=== PATIENT | female | born 2000 | race African-American/Black ===

== ENCOUNTER 2018-02-27 21:05 | Inpatient (IN) ==
[2018-02-27] MEDS ORDERED: Dexamethasone Inj 20 MG/5 ML Vial IV.PUSH ONE (22:13)
[2018-02-27] MEDS ORDERED: Sod Chloride 0.9% Inj 1,000 ML IV.SIG SCH (22:15)
--- NOTE | 2018-02-27 22:45 | ED ---
HPI General Chief complaint: Ear Stated complaint: Flu symptoms Time Seen by Provider: 02/27/18 22:06 Source: patient Mode of arrival: ambulatory Limitations: no limitations History of Present Illness HPI narrative: Patient is a 17-year-old female presenting to the emerge department for evaluation of sore throat and left ear pain. Patient states started 2 days ago. She denies any drooling but states it is painful to swallow. Patient has not taken any medications to alleviate her symptoms. She reports the pain is a 9 out of 10, aching, sore. Symptom onset was gradual, symptoms are moderate. Patient denies any vomiting, abdominal pain, chest pain , headache. She endorses chills and subjective fevers. Patient denies any significant past medical history. Onset (ago): day(s) Related Data Home Medications Medication Instructions Recorded Confirmed No Known Home Medications 02/28/18 02/28/18 Allergies Allergy/AdvReac Type Severity Reaction Status Date / Time No Known Allergies Allergy Verified 02/06/18 05:57 Review of Systems ROS: all other systems reviewed are negative [facility] Medical History Medical History Patient denies medical problems (Acute) Surgical History Surgical History No history of previous surgery (Acute) Social History Social History Substance History: No History of Abuse Second Hand Smoke Exposure: No Smoking Status: Never smoker How Often Do You Have a Drink Containing Alcohol: Never Recent Travel in [facility] within the Last 8 Weeks: No Recent Out of Country Travel within the Last 8 Weeks: No Immunization History Tetanus Immunization: Unsure Exam Narrative Exam Narrative: GENERAL: Overweight, well-developed, alert -[place] female. Presenting in no acute distress. SKIN: Focused skin assessment warm/dry. HEAD: Atraumatic. Normocephalic. EYES: Pupils equal and round. No scleral icterus. No injection or drainage. ENT: No nasal bleeding or discharge. Mucous membranes pink and moist. Bilateral tonsillar hypertrophy, left tonsil is touching uvula. Mild erythema noted, no exudates noted. NECK: Trachea midline. No JVD. Tenderness to the left lateral neck with mild edema. CARDIOVASCULAR: Tachycardic. No murmur appreciated. RESPIRATORY: No accessory muscle use. Clear to auscultation. Breath sounds equal bilaterally. No Stridor noted. GASTROINTESTINAL: Abdomen soft, non-tender, nondistended. Hepatic and splenic margins not palpable. MUSCULOSKELETAL: No obvious deformities. No clubbing. No cyanosis. No edema. NEUROLOGICAL: Awake and alert. No obvious cranial nerve deficits. Motor grossly within normal limits. Normal speech. PSYCHIATRIC: Appropriate mood and affect; insight and judgment normal. Course Initial Documented Vital Signs Temperature 100.3 F H 02/27/18 21:19 Pulse Rate 120 H 02/27/18 21:19 Respiratory Rate 18 02/27/18 21:19 Blood Pressure 156/76 H 02/27/18 21:19 Pulse Oximetry 100 02/27/18 21:19 Last Documented Vital Signs Temperature 98.2 F 02/28/18 08:00 Pulse Rate 71 02/28/18 08:00 Respiratory Rate 16 02/28/18 08:00 Blood Pressure 129/77 02/28/18 08:00 Pulse Oximetry 100 02/28/18 08:00 Medical Decision Making ИРИНА Attestation ИРИНА supervised visit: Yes Attestation: I, Dr. Ray, have reviewed the advance practice practitioner's documentation and am in agreement, met with the patient face to face, made the diagnosis, and the medical decision making was done by me. *My assessment and Findings: Pt with deviation of trachea to R on CT imaging associated with selling of submandibular gland on CT. WBC 16k. Febrile on arrival. No dyspnea. + Hoarse voice. No abscess/collection. Clindamycin and Decadron IV. d/w Dr Wynn. [facility] Narrative Medical decision making narrative: Patient is a 17-year-old female presenting for evaluation of a sore throat and ear pain. On arrival patient is tachycardic and febrile. Exam is concerning for peritonsillar abscess. CT scan , labs ordered and pending. Patient will receive ibuprofen, dexamethasone IV fluids now. Will reassess. CBC with white blood cell count of 16.4. BMP is unremarkable. UA with reflex culture pending. Pt has no urinary symptoms. CT of the neck shows an ill defined prominence left parapharyngeal region with mild midline shift of the airway to the right. Concerning for infection or inflammatory process. Pt meets sepsis criteria based on HR, Temp and WBC's. She will be given Clindamycin due to penicillin allergy. Pt will be admitted to monitor for airway obstruction. Pt reassessed and reports the pain has improved slightly. Her temp is now 99.0. [facility] paged for admit. Medical Screen Exam Complete: Yes Emergency Medical Condition: Yes Differential Diagnosis Differential Diagnosis: Tonsillitis vs abscess vs strep vs metabolic abnormality vs other Medical Records Medical records reviewed: Yes I reviewed the patient's medical records. Lab Data Lab results reviewed: Yes I reviewed the patient's lab results. Result diagrams: 02/27/18 22:20 02/27/18 22:20 POC Results POC Urine Results Negative Lab Results 02/27/18 02/27/18 02/27/18 Range/Units 22:20 22:20 23:12 WBC 16.4 H (4.0-11.0) th/mm3 RBC 4.39 (4.00-5.30) mil/mm3 Hgb 7.4 L (11.6-15.3) gm/dL Hct 24.4 L (35.0-46.0) % MCV 55.5 L (80.0-100.0) fL MCH 16.8 L (27.0-34.0) pg MCHC 30.3 L (32.0-36.0) % RDW 20.4 H (11.6-17.2) % Plt Count 425 (150-450) th/mm3 MPV 8.4 (7.0-11.0) fL Neut % (Auto) 74.1 H (16.0-70.0) % Lymph % (Auto) 17.1 (9.0-44.0) % [place] % (Auto) 6.4 (0.0-8.0) % Eos % (Auto) 1.9 (0.0-4.0) % Baso % (Auto) 0.5 (0.0-2.0) % Neut # (Auto) 12.1 H (1.8-7.7) th/mm3 Lymph # (Auto) 2.8 (1.0-4.8) th/mm3 [place] # (Auto) 1.0 H (0.0-0.9) th/mm3 Eos # (Auto) 0.3 (0.0-0.4) th/mm3 Baso # (Auto) 0.1 (0.0-0.2) th/mm3 WBC Differential . Differential Comment Auto diff final Sodium 139 (136-145) meq/L Potassium 3.9 (3.5-5.1) meq/L Chloride 103 (98-107) meq/L Carbon Dioxide 28.2 (21.0-32.0) meq/L Anion Gap 8 (5-15) meq/L BUN 9 (7-18) mg/dL Creatinine 0.98 (0.50-1.00) mg/dL Estimated GFR 88 L (>89) mL/min Random Glucose 95 (74-106) mg/dL Calcium 9.2 (8.5-10.1) mg/dL Urine Color Diana (Yellw/Straw) Urine Clarity Cloudy H (Clear) Urine pH 5.0 (5.0-8.5) Ur Specific [place] 1.026 (1.002-1.035) Urine Protein 30 H (Neg-Trace) mg/dL Urine Glucose (UA) Negative (Negative) mg/dL Urine Ketones Trace H (Negative) mg/dL Urine Occult Blood Negative (Negative) Urine Nitrate Negative (Negative) Urine Bilirubin Negative (Negative) Urine Urobilinogen 4 or greater (Less than 2) mg/dL Ur Leukocyte Esterase Negative (Negative) Urine RBC 1 (0-3) /hpf Urine WBC 11 H (0-5) /hpf Ur Squamous Epith Cells 2 (0-5) /hpf Amorphous Sediment Rare H (None) /hpf Urine Bacteria Few H (None) /hpf Urine Mucus Many H (Occasional) /lpf Micro UA Comment Culture indicated Ur Microscopic Review Not Reportable Urine Culture Comments Culture indicated Imaging Data Radiologist's impression: Soft Tissue Neck CT 02/27/18 22:13 CONCLUSION: 1. Abnormal ill-defined prominence in the left parapharyngeal region with mild midline shift of the airway to the right. There are no focal gas bubbles or identifiable mass. This finding is of concern for infection and or inflammatory change. There is no well-defined abscess. 2. Mildly prominent left cervical chain nodes which likely are reactive. Discharge Plan Discharge Disposition Patient Disposition: ED Admit(ED Internal Use Only) Discharge Condition Condition: Stable Discharge Order Discharge Orders: ED Use Only Admit Order (Routine); Ordered 02/28/18 Ordered By: Dawood Ray Discharge Details Diagnosis: Sepsis, Hypertrophy of tonsil, Abnormal CT scan, At risk for airway obstruction Physicians Team ED Provider: Dawood Ray ED Midlevel Provider: Gala Hopper Primary Care Provider: Primary Care Melanie Malik Attending Provider: Hector Allen Status ED Status: Left Department Discharge Information Discharge Date/Time: 02/28/18 02:31
[2018-02-27 22:52] LABS: Baso # (Auto) 0.1 th/mm3 (0.0-0.2); Baso % (Auto) 0.5 % (0.0-2.0); Eos # (Auto) 0.3 th/mm3 (0.0-0.4); Eos % (Auto) 1.9 % (0.0-4.0); Hematocrit 24.4 % (35.0-46.0); Hemoglobin 7.4 gm/dL (11.6-15.3); Lymph # (Auto) 2.8 th/mm3 (1.0-4.8); Lymph % (Auto) 17.1 % (9.0-44.0); Mean Corpuscular HGB Conc 30.3 % (32.0-36.0); Mean Corpuscular Hemoglobin 16.8 pg (27.0-34.0); Mean Corpuscular Volume 55.5 fL (80.0-100.0); Mean Platelet Volume 8.4 fL (7.0-11.0); Mono % (Auto) 6.4 % (0.0-8.0); Neut # (Auto) 12.1 th/mm3 (1.8-7.7); Neut % (Auto) 74.1 % (16.0-70.0); Platelet Count 425 th/mm3 (150-450); Red Blood Count 4.39 mil/mm3 (4.00-5.30); Red Cell Distribution Width 20.4 % (11.6-17.2); White Blood Count 16.4 th/mm3 (4.0-11.0)
[2018-02-27 23:29] LABS: Calcium 9.2 mg/dL (8.5-10.1); Carbon Dioxide 28.2 meq/L (21.0-32.0); Potassium 3.9 meq/L (3.5-5.1)
[2018-02-27 23:30] LABS: Amorphous Sediment,Urine Rare /hpf; Bacteria,Urine Few /hpf; Bilirubin,Urine Negative (Negative); Clarity,Urine Cloudy (Clear); Color,Urine Amber (Yellw/Straw); Glucose,Urine (UA) Negative (Negative); Leukocyte Esterase,Urine Negative (Negative); Mucus,Urine Many /lpf (Occasional); Nitrite,Urine Negative (Negative); Specific Gravity,Urine 1.026 (1.002-1.035); Squamous Epithelial Cell,Urine 2 /hpf (0-5); Urobilinogen,Urine 4 or Greater mg/dL (Less than 2)
--- NOTE | 2018-02-28 00:10 | CT ---
EXAM DATE: 02/28/2018 12:00 AM EST AGE/SEX: 17 years / Female INDICATIONS: Sore throat, Neck pain. CLINICAL DATA: This is the patient's initial encounter. Patient reports that signs and symptoms have been present for 2 days and indicates a pain score of 8/10. MEDICAL/SURGICAL HISTORY: None. None. RADIATION DOSE: 20.25 CTDI (mGy) COMPARISON: No prior exams available for comparison. TECHNIQUE: Helical acquisition was performed using a multirow detector CT scanner during the adminis tration of 71 ml Omnipaque 350 (iohexol) nonionic water-soluble contrast as a single exam dose. Usi ng automated exposure control and adjustment of the mA and/or kV according to patient size, radiation dose was kept as low as reasonably achievable to obtain optimal diagnostic quality images. DICOM fo rmat image data is available electronically for review and comparison. FINDINGS: Nasopharynx: The nasopharyngeal airway has a normal configuration. No mucosal thickening or mass is seen. Oropharynx: The intrinsic muscles of the tongue are symmetric. The tonsillar pillars are intact. T he prevertebral soft tissues are not thickened. Larynx: The supraglottic, glottic, and infraglottic structures are intact. Parapharyngeal: There is abnormal ill-defined prominence in the left parapharyngeal region with mild midline shift of the airway to the right. There is subtle decreased density in this region with no g as bubbles or definable mass. Salivary Glands: The parotid and submandibular glands are intact. Lymph Nodes: There are no necrotic-appearing lymph nodes. There is a mildly prominent left lower cer vical chain node measuring up to 1.8 cm in diameter. There are adjacent smaller nodes. Thyroid: Homogeneous enhancement without evidence of nodule. Bones: Unremarkable. CONCLUSION: 1. Abnormal ill-defined prominence in the left parapharyngeal region with mild midline shift of the airway to the right. There are no focal gas bubbles or identifiable mass. This finding is of concern for infection and or inflammatory change. There is no well-defined abscess. 2. Mildly prominent left cervical chain nodes which likely are reactive. Electronically signed by: Serge Venegas MD Board Certified Radiologist 02/28/2018 12:09 AM EST
[2018-02-28] MEDS ORDERED: Clindamycin 900 mg/NS Premix 900 MG/50 ML PIGGYBACK IV.SIG ONE (00:22)
[2018-02-28] MEDS ORDERED: Acetaminophen 325 MG Tablet PO PRN (01:31)
[2018-02-28] MEDS: Enoxaparin Inj 40 MG/0.4 ML Syringe SQ SCH (01:52)
[2018-02-28] MEDS: Sod Chloride 0.9% Inj 1,000 ML IV.CONT SCH ×2 (03:47→14:02)
[2018-02-28] MEDS ORDERED: Clindamycin 900 mg/NS Premix 900 MG/50 ML PIGGYBACK IV.SIG SCH (07:00)
[2018-02-28] MEDS ORDERED: Dexamethasone Inj 20 MG/5 ML Vial IV.PUSH ONE (07:29)
--- NOTE | 2018-02-28 11:57 | P.HPIM ---
History of Present Illness Primary Care Physician: No Primary Care Physician History of Present Illness: 17-year-old female with a history of bilateral tonsillar hypertrophy and sleep apnea presents to the ER following 2 days of worsening sore throat which reached the point where swallowing was so difficult she began to drool and began to have some difficulty with her breathing. She has only been able to hold down liquids. Unable to swallow solid food. ER examination on admission revealed marked swelling of the left oropharynx, she was given a dose of IV steroids and started on clindamycin. Her admission was late in the night but it seems evident that she has had some improvement, both symptomatically and visually, already. She denies , denies nausea vomiting or diarrhea. She denies cough or upper airway symptoms. She denies chest pain. Inpatient Certification Inpatient Certification: I certify that the inpatient services were ordered in accordance with Medicare regulations governing the order. This includes certification that hospital inpatient services are reasonable and necessary and in the case of services not specified as inpatient-only under 42 CFR 419.22(n), that they are appropriately provided as inpatient services in accordance to with the 2-midnight benchmark under 43 CFR 412.3(e) Estimated Total Length of Stay (Days): 3 Plans for Post Hospital Care: Home Review of Systems Review of Systems: all other systems reviewed are negative [facility] Medical History Medical History Patient denies medical problems (Acute) Surgical History Surgical History No history of previous surgery (Acute) Social History Social History Substance History: No History of Abuse Second Hand Smoke Exposure: No Smoking Status: Never smoker How Often Do You Have a Drink Containing Alcohol: Never Recent Travel in [place] within the Last 8 Weeks: No Recent Out of Country Travel within the Last 8 Weeks: No Immunization History Tetanus Immunization: Unsure Medications and Allergies Allergies Allergy/AdvReac Type Severity Reaction Status Date / Time No Known Allergies Allergy Verified 02/06/18 05:57 Home Medications Medication Instructions Recorded Confirmed Type No Known Home Medications 02/28/18 02/28/18 History Active Medications: Active Medications Acetaminophen (Tylenol) 650 mg PO Q4H PRN PRN Reason: Temp > 100.4 Dexamethasone Sodium Phosphate (Decadron Inj) 4 mg IV.PUSH Q8HR [facility] Enoxaparin Sodium (Lovenox Inj) 40 mg SQ Q24H [facility] Last Admin: 02/28/18 01:52 Dose: Not Given Sodium Chloride (Ns Inj) 1,000 mls @ 100 mls/hr IV.CONT .Q10H [facility] Last Admin: 02/28/18 03:47 Dose: 100 mls/hr Clindamycin Phosphate 900 mg/ (Sodium Chloride) 106 mls @ 200 mls/hr IV.SIG Q8H [facility] Last Infusion: 02/28/18 11:16 Dose: 200 mls/hr Lactobacillus Acidophilus (Lactinex Pkt) 1 gm PO TID [facility] Last Admin: 02/28/18 10:13 Dose: 1 gm Ondansetron HCl (Zofran Inj) 4 mg IV.PUSH Q6H PRN PRN Reason: NAUSEA OR VOMITING Pantoprazole Sodium (Protonix) 40 mg PO BID [facility] Last Admin: 02/28/18 10:13 Dose: 40 mg Sodium Chloride (Ns Flush) 2 ml IV.FLUSH PRN PRN PRN Reason: FLUSH AFTER USING IV ACCESS Sodium Chloride (Ns Flush) 2 ml IV.FLUSH BID [facility] Last Admin: 02/28/18 10:13 Dose: 2 ml Physical Exam Vital signs: Last Vital Signs Temp 98.2 F 02/28/18 08:00 Pulse 71 02/28/18 08:00 Resp 16 02/28/18 08:00 BP 129/77 02/28/18 08:00 Pulse Ox 100 02/28/18 08:00 Intake & Output 02/26/18 02/27/18 02/28/18 03/01/18 06:59 06:59 06:59 06:59 Intake Total 1050 / 1050 Balance 1050 / 1050 Weight 113.398 kg Narrative: GENERAL: AAOx3, no acute distress, overweight SKIN: Warm and dry, no rashes. HEAD: Atraumatic. Normocephalic. EYES: Pupils equal, round, reactive to light. No scleral icterus. No injection or drainage. ENT: No nasal bleeding or discharge. Moist mucous membranes. Fullness of left oropharynx compared to right, no pustules, no evidence of abscess, tonsillar hypertrophy NECK: Trachea midline. No JVD. Thyroid size within normal limits. CARDIOVASCULAR: Regular rate and rhythm. No murmur, no gallops, no rubs. RESPIRATORY: Clear and equal to auscultation bilaterally. No crackles, no wheezes. No accessory muscle use. GASTROINTESTINAL: Abdomen soft, non-tender, nondistended, normal active bowel sounds. Hepatic and splenic margins not palpable. MUSCULOSKELETAL: Extremities without clubbing or cyanosis. No obvious deformities. No edema. NEUROLOGICAL: Awake and alert. No obvious cranial nerve deficits. Motor grossly within normal limits. No focal deficits. Five out of 5 muscle strength in the arms and legs. Normal speech. PSYCHIATRIC: Appropriate mood and affect; insight and judgment normal. Results Labs CBC & Chem 7: 02/27/18 22:20 02/27/18 22:20 Imaging Impressions Soft Tissue Neck CT 02/27/18 22:13 CONCLUSION: 1. Abnormal ill-defined prominence in the left parapharyngeal region with mild midline shift of the airway to the right. There are no focal gas bubbles or identifiable mass. This finding is of concern for infection and or inflammatory change. There is no well-defined abscess. 2. Mildly prominent left cervical chain nodes which likely are reactive. Caprini VTE Risk Assessment Caprini VTE Risk Assessment: Moderate/High Risk (score >= 2) Caprini Risk Assessment Model: Point Value = 1 Point Value = 2 Point Value = 3 Point Value = 5 Age 41-60 Minor surgery BMI > 25 kg/m2 Swollen legs Varicose veins or History of unexplained or recurrent spontaneous Oral contraceptives or hormone replacement Sepsis (< 1 month) Serious lung disease, including pneumonia (< 1 month) Abnormal pulmonary function Acute myocardial infarction Congestive heart failure (< 1 month) History of inflammatory bowel disease Medical patient at bed rest Age 61-74 Arthroscopic surgery Major open surgery (> 45 min) Laparoscopic surgery (> 45 min) Malignancy Confined to bed (> 72 hours) Immobilizing plaster cast Central venous access Age >= 75 History of VTE Family history of VTE Factor V Leiden Prothrombin [id number] Lupus anticoagulant Anticardiolipin antibodies Elevated serum homocysteine Heparin-induced thrombocytopenia Other congenital or acquired thrombophilia Stroke (< 1 month) Elective arthroplasty Hip, pelvis, or leg fracture Acute spinal cord injury (< 1 month) Prophylaxis Regimen: Total Risk Factor Score Risk Level Prophylaxis Regimen 0-1 Low Early ambulation 2 Moderate Order ONE of the following: *Sequential Compression Device (SCD) *Heparin 5000 units SQ BID 3-4 Higher Order ONE of the following medications: *Heparin 5000 units SQ TID *Enoxaparin/Lovenox 40 mg SQ daily (WT < 150 kg, CrCl > 30 mL/min) *Enoxaparin/Lovenox 30 mg SQ daily (WT < 150 kg, CrCl > 10-29 mL/min) *Enoxaparin/Lovenox 30 mg SQ BID (WT < 150 kg, CrCl > 30 mL/min) AND/OR *Sequential Compression Device (SCD) 5 or more Highest Order ONE of the following medications: *Heparin 5000 units SQ TID (Preferred with Epidurals) *Enoxaparin/Lovenox 40 mg SQ daily (WT < 150 kg, CrCl > 30 mL/min) *Enoxaparin/Lovenox 30 mg SQ daily (WT < 150 kg, CrCl > 10-29 mL/min) *Enoxaparin/Lovenox 30 mg SQ BID (WT < 150 kg, CrCl > 30 mL/min) AND *Sequential Compression Device (SCD) Assessment and Plan Plan Tonsillitis with airway swelling No peritonsillar abscess noted on CT, on exam no bulge consistent with abscess Patient had some fairly rapid improvement after being given doses of dexamethasone Rapid strep a screen was negative, cultures are pending She has been started empirically on clindamycin IV Will observe patient today for rate of improvement, she is improving already and wants to go home Bilateral tonsillar hypertrophy This is been a lifelong problem for her, likely her tonsillitis is not so bad, except that her tonsils are so huge She has had a visit with ENT 2 years ago to discuss tonsillar removal, she was declined at that time She states that since then she has had a sleep study and has been diagnosed with sleep apnea, likely due to enlarged tonsils On exam, at baseline, she has tonsillar stridor when she takes breaths quickly My recommendation for her is to follow-up with ENT again after infection is resolved to discuss possibility of removing both tonsils DVT prophylaxis Lovenox H&P: Quality VTE Deep Vein Thrombosis/Pulmonary Embolism Present on Admission: No
[2018-03-01] MEDS: Enoxaparin Inj 40 MG/0.4 ML Syringe SQ SCH (01:42)
[2018-03-01 04:57] LABS: Hemoglobin 7.5 gm/dL (11.6-15.3); Lymph % (Auto) 11.2 % (9.0-44.0); Mean Platelet Volume 8.8 fL (7.0-11.0); Mono # (Auto) 0.9 th/mm3 (0.0-0.9); Mono % (Auto) 5.1 % (0.0-8.0); Neut # (Auto) 14.6 th/mm3 (1.8-7.7); Neut % (Auto) 83.7 % (16.0-70.0); Platelet Count 476 th/mm3 (150-450); Red Blood Count 4.39 mil/mm3 (4.00-5.30); Red Cell Distribution Width 20.5 % (11.6-17.2); White Blood Count 17.4 th/mm3 (4.0-11.0)
[2018-03-01 05:23] LABS: Mean Corpuscular HGB Conc 29.8 % (32.0-36.0)
[2018-03-01 05:32] LABS: Anion Gap 8 meq/L (5-15); Blood Urea Nitrogen 10 mg/dL (7-18); Calcium 8.9 mg/dL (8.5-10.1); Carbon Dioxide 26.2 meq/L (21.0-32.0); Chloride 107 meq/L (98-107); Glomerular Filtration Rate Greater Than 89 mL/min (>89); Glucose,Random 121 mg/dL (74-106); Potassium 4.3 meq/L (3.5-5.1); Sodium 141 meq/L (136-145)
[2018-03-01] MEDS: Sod Chloride 0.9% Inj 1,000 ML IV.CONT SCH ×2 (06:04→09:09)
[2018-03-01 06:12] VITALS: TEMP 97.8; O2SAT 100
[2018-03-01 07:35] VITALS: BP 98/58; RESP 16
--- NOTE | 2018-03-01 10:00 | P.DS ---
DS: Providers Date of admission: 02/28/18 01:01 Primary care physician: No Primary Care Physician Brief History from admission: 17-year-old female with a history of bilateral tonsillar hypertrophy and sleep apnea presents to the ER following 2 days of worsening sore throat which reached the point where swallowing was so difficult she began to drool and began to have some difficulty with her breathing. She has only been able to hold down liquids. Unable to swallow solid food. ER examination on admission revealed marked swelling of the left oropharynx, she was given a dose of IV steroids and started on clindamycin. Her admission was late in the night but it seems evident that she has had some improvement, both symptomatically and visually, already. She denies , denies nausea vomiting or diarrhea. She denies cough or upper airway symptoms. She denies chest pain. DS: Summary 17-year-old female with a history of bilateral tonsillar hypertrophy presented to the ER 2 days ago with partial airway obstruction secondary to swelling of her left tonsil and oropharynx that was a result of a sore throat. Initial rapid strep was negative. Swab was sent for culture but results are pending. She was given empiric treatment with clindamycin and dexamethasone and has had great improvement since then. Her throat is approximately 80% improved and she is tolerating food without any pain. She is stable for discharge home and recommended to follow-up with her primary care provider. Continue Medrol Dosepak and clindamycin for 5 more days. Time Spent with Patient Total time spent providing and/or coordinating discharge services: Less than 30 minutes Quality: VTE Deep Vein Thrombosis/Pulmonary Embolism Present on Admission: No Results Labs on day of discharge: Labs from last 24 hours 03/01/18 03/01/18 03:39 03:39 WBC 17.4 H RBC 4.39 Hgb 7.5 L Hct 25.0 L MCV 57.0 L MCH 17.0 L MCHC 29.8 L RDW 20.5 H Plt Count 476 H MPV 8.8 Neut % (Auto) 83.7 H Lymph % (Auto) 11.2 [place] % (Auto) 5.1 Eos % (Auto) 0.0 Baso % (Auto) 0.0 Neut # (Auto) 14.6 H Lymph # (Auto) 2.0 [place] # (Auto) 0.9 Eos # (Auto) 0.0 Baso # (Auto) 0.0 WBC Differential . Differential Comment Auto diff final Sodium 141 Potassium 4.3 Chloride 107 Carbon Dioxide 26.2 Anion Gap 8 BUN 10 Creatinine 0.83 Estimated GFR Greater than 89 Random Glucose 121 H Calcium 8.9 Impressions ITS Impressions Soft Tissue Neck CT 02/27/18 22:13 CONCLUSION: 1. Abnormal ill-defined prominence in the left parapharyngeal region with mild midline shift of the airway to the right. There are no focal gas bubbles or identifiable mass. This finding is of concern for infection and or inflammatory change. There is no well-defined abscess. 2. Mildly prominent left cervical chain nodes which likely are reactive. Discharge Plan Discharge Disposition Patient Disposition: Discharge Home Discharge Condition Condition: Stable Discharge Order Discharge Orders: Discharge Order (Routine); Ordered 03/01/18 Ordered By: Hector Allen Discharge Details Anticipated Discharge Date: 03/01/18 Physicians Team Primary Care Provider: Primary Care Melanie Malik Attending Provider: Hector Allen Rxs /Orders / Referrals /Forms Prescriptions: New clindamycin HCl 300 mg capsule 300 mg PO BID 5 Days Qty: 10 RF: 0 fluconazole [Diflucan] 150 mg tablet 150 mg PO ONCE 1 Days Qty: 1 RF: 0 methylprednisolone [Medrol (Abdirahman)] 4 mg tablets,dose pack See Label Instructions PO PER PKG DIR Qty: 21 RF: 0 No Action No Known Home Medications RF: 0 Referrals: Primary Care Melanie Malik [Primary Care Provider] - See Instructions Status ED Status: Left Department
[2018-03-01 11:03] VITALS: PULSE 107
== END 2018-03-01 10:41 | disposition home or self-care (01) | DRG 156 ==
LOC: NEPE 21:05 → NEDA 02-28 01:01 → NEPGCP 02-28 02:30 → NEDA 02-28 02:31
PROVIDERS: ADMIT Family Medicine; ATTEND Family Medicine
CPT/HCPCS: 70491; 80048; 81001; 84703; 85025; 87081; 87086; 87275; 87276; 87804; 87880; 90761; 90774; 90784; 96361; 96374; 99285; C8952; J1100; J1650; J7030; Q9967